=== PATIENT | male | born 1975 | race Caucasian/White ===

== ENCOUNTER → 2016-10-30 | Outpatient (CLI) | payer BC ==
[2016-10-30 08:37] LABS: ALBUMIN/GLOBULIN RATIO 1.33 (1.00-1.93); ALKALINE PHOSPHATASE 83 U/L (45-117); ALT/SGPT 19 U/L (12-78); ANION GAP 6 MEQ/L (8-16); AST/SGOT 9 U/L (15-37); BILIRUBIN,TOTAL 0.6 MG/DL (0.2-1.0); BLOOD UREA NITROGEN 10 MG/DL (7-18); CALCIUM LEVEL 8.8 MG/DL (8.5-10.1); CARBON DIOXIDE LEVEL 27 MEQ/L (21-32); CHLORIDE LEVEL 106 MEQ/L (98-107); CHOLESTEROL LEVEL 209 MG/DL (<200); CREATININE FOR GFR 0.87 MG/DL (0.70-1.30); GLOMERULAR FILTRATION RATE > 60.0 (>60); GLUCOSE, FASTING 109 MG/DL (70-105); SODIUM LEVEL 139 MEQ/L (136-145); TRIGLYCERIDES LEVEL 132 MG/DL (<150)
--- NOTE | 2016-10-31 03:41 | REP ---
Clinical: Right-sided scrotal and testicular pain with lump. Technique: Boone scale and color Doppler evaluation using linear and curved array transducer with color Doppler evaluation. Findings: The testicles and epididymi are relatively normal in contour, size, echogenicity, vascularity and overall appearance/contour. Incidental note is made of a 4.2 mm right epididymal head cyst and 2.8 mm left epididymal head cyst. There is no evidence for intratesticular mass lesion, infectious/inflammatory process, with torsion. No obvious hydroceles or varicoceles are identified. Right-sided palpable mass corresponds to a 14 x 6 x 9 mm focal complex cystic area with layering debris. Finding is nonspecific but may represent focal spermatocele, and appears otherwise relatively benign. Right testicle measures 3.9 x 2.8 x 3.2 cm cm. Left testicle measures 4.0 x 2.5 x 3.1 cm cm. Impression: Palpable mass corresponds to focal cyst with layering debris which is otherwise nonspecific by ultrasound and appears relatively benign. Differential diagnosis includes but is not limited to spermatocele. Signed by Silverio Calderon MD 10/31/2016 03:33 A
== END ==
LOC: M RAD 07:40
PROVIDERS: ATTEND Physician Assistant Medical
DX: Z13.220 Encounter for screening for lipoid disorders (principal); Z00.00 Encounter for general adult medical examination without abnormal findings

== ENCOUNTER → 2017-05-23 | Outpatient (REF) | payer BC | LOC: M LAB REF 17:56 | DX: J06.9 Acute upper respiratory infection, unspecified (principal) | CPT/HCPCS: 87081 ==

== ENCOUNTER 2018-11-06 18:20 | Emergency (ER) | payer BC, SELFPAY ==
[~2018-11-06] VITALS: Ht 180.3 cm; Wt 79.5 kg
[2018-11-06 18:56] LABS: BASO % 0.5 % (0.0-1.0); EOS # 0.1 10^3/uL (0.0-0.50); EOS % 1.5 % (0.0-3.0); HEMATOCRIT 49.3 % (42.0-52.0); HEMOGLOBIN 17.5 g/dl (13.5-17.5); LYMPH # 3.1 10^3/uL (1.5-4.5); LYMPH % 35.4 % (24.0-44.0); MEAN CORPUSCULAR HEMOGLOBIN 34.7 pg (27.0-33.0); MEAN CORPUSCULAR HGB CONC 35.5 g/dl (32.0-36.5); MEAN CORPUSCULAR VOLUME 97.6 fl (80.0-96.0); MONO # 0.6 10^3/uL (0.0-0.8); MONO % 6.4 % (0.0-5.0); NEUTROPHILS # 4.9 10^3/uL (1.8-7.7); NEUTROPHILS % 55.7 % (36.0-66.0); PLATELET COUNT, AUTOMATED 194 10^3/uL (150-450); RED BLOOD COUNT 5.05 10^6/uL (4.30-6.10); WHITE BLOOD COUNT 8.8 10^3/uL (4.0-10.0)
[2018-11-06 19:15] VITALS: BP 142/83
[2018-11-06 19:24] LABS: BLOOD UREA NITROGEN 7 MG/DL (7-18); CARBON DIOXIDE LEVEL 27 MEQ/L (21-32); CHLORIDE LEVEL 103 MEQ/L (98-107); CK-MB VALUE MASS < 1.0 NG/ML (<3.6); CPK CREATINE PHOSPHOKINASE 119 U/L (39-308); CREATININE FOR GFR 0.88 MG/DL (0.70-1.30); GLOMERULAR FILTRATION RATE > 60.0 (>60); GLUCOSE, FASTING 84 MG/DL (70-100); MB/CK RELATIVE INDEX 0.84 (< OR =4); POTASSIUM SERUM 3.8 MEQ/L (3.5-5.1); SODIUM LEVEL 136 MEQ/L (136-145); TROPONIN I < 0.02 NG/ML (< 0.10)
[2018-11-06 19:41] LABS: ALBUMIN 4.2 GM/DL (3.2-5.2); ALT/SGPT 31 U/L (12-78); BILIRUBIN,DIRECT 0.1 MG/DL (0.0-0.2); BILIRUBIN,TOTAL 0.6 MG/DL (0.2-1.0); LIPASE 87 U/L (73-393); TOTAL PROTEIN 8.1 GM/DL (6.4-8.2)
[2018-11-06 19:44] LABS: INR 1.03; PROTHROMBIN TIME 13.2 SECONDS (11.8-14.0)
--- NOTE | 2018-11-06 19:59 | REP ---
Clinical: Acute chest pain . Comparison: None . Findings: The mediastinum and cardiac silhouette are stable and within normal limits for portable technique. The lung escudero are clear without acute consolidation, effusion, or pneumothorax. Skeletal structures are intact. Impression: No acute cardiopulmonary process appreciated. Electronically Signed by Silverio Calderon MD 11/06/2018 07:50 P
--- NOTE | 2018-11-06 20:28 | ECGEPIP ---
[facility] - ED Test Date: 2018-11-06 Pat Name: MICHELLE COSME Department: Room: - Gender: Male [employer]: : [id number] Requested By: Maryan Blakely Order Number: [id number] Reading MD: Wyatt Edgar Measurements Intervals [place] Rate: 78 P: 70 NV: 139 QRS: 56 QRSD: 99 T: 81 QT: 373 QTc: 426 Interpretive Statements SINUS RHYTHM LEFT ATRIAL ENLARGEMENT POSSIBLE LEFT VENTRICULAR HYPERTROPHY BENIGN EARLY REPOLARIZATION NO PRIORS FOR COMPARISON Electronically Signed on 11-06-2018 20:28:05 EDT by Wyatt Edgar
== END 2018-11-06 19:40 | disposition left against medical advice (07) ==
LOC: M ED 18:20
DX: R07.9 Chest pain, unspecified (principal); R06.02 Shortness of breath; F17.210 Nicotine dependence, cigarettes, uncomplicated

== ENCOUNTER → 2023-06-25 | Outpatient (CLI) | payer BC | LOC: M SOG 07:55 | PROVIDERS: ATTEND Orthopaedic Surgery | DX: M25.511 Pain in right shoulder (principal); M89.8X1 Other specified disorders of bone, shoulder ==

== ENCOUNTER → 2023-07-13 | Outpatient (CLI) | payer BC | LOC: M RAD 08:24 | PROVIDERS: ATTEND Orthopaedic Surgery | DX: M89.8X1 Other specified disorders of bone, shoulder (principal); M75.41 Impingement syndrome of right shoulder ==